=== PATIENT | male | born 1970 | race Caucasian/White ===

== ENCOUNTER 2016-05-31 07:42 | Day surgery (SDC) | payer BC ==
[2016-05-29 09:13] LABS: HEMATOCRIT 43.2 % (40.0-51.0); HEMOGLOBIN 15.4 g/dL (13.6-17.8)
[2016-05-29 09:21] LABS: PARTIAL THROMBO TIME 33.2 SEC (22.5-37.2)
[2016-05-29 09:25] LABS: BUN (BLOOD UREA NITROGEN) 15 MG/DL (6-23); CALCIUM, SERUM 9.2 MG/DL (8.5-10.4); CHLORIDE, SERUM 103 MMOL/L (96-112); CO2 (CARBON DIOXIDE) 30 MMOL/L (24-34); CREATININE 0.83 MG/DL (0.70-1.30); GFR AFRICAN AMERICAN 123 ML/MIN (>=60); GFR NON AFRICAN AMERICAN 106 ML/MIN (>=60); GLUCOSE, SERUM 86 MG/DL (60-99); POTASSIUM, SERUM 4.1 MMOL/L (3.5-5.3); SODIUM, SERUM 142 MMOL/L (135-148)
--- NOTE | ~2016-05-31 | OP ---
Record Of Operation [facility] [address] [place]. [address] NAME: HEAVEN DESAI MD : 70 STATUS : REG [facility]#: [id number] AGE: 45 ADM/REG DATE : 05/31/16 MR#: [id number] REPORT SERV DATE: 05/31/16 DICTATED BY: AROLDO ZAMAN DATE: 05/31/16 REPORT STATUS : Draft TRANSCRIBED BY: YOGI DATE: 05/31/16 DATE OF PROCEDURE: 05/31/2016 PREOPERATIVE DIAGNOSIS: Chronic rhinosinusitis. POSTOPERATIVE DIAGNOSIS: Chronic rhinosinusitis. PROCEDURE: Left maxillary antrostomy with tissue removal, left anterior ethmoidectomy, and frontal sinusotomy. ESTIMATED BLOOD LOSS: 15 mL. COMPLICATIONS: No complications. FINDINGS: Polypoid tissue in the left frontal recess, left maxillary os, and the anterior ethmoid versus mucoperiosteal thickening. Propel stent placed in the ethmoid cavity. Acclarent system for balloon used for frontal sinusotomy. INDICATIONS FOR PROCEDURE: This is a 45-year-old gentleman with chronic rhinosinusitis despite maximum medical therapy including a month of antibiotics with oral steroids. Followup CT shows continued opacification left frontal recess, left anterior ethmoids and maxillary sinuses. He continues to have pain and pressure on the left side of his face, particularly over his eye. He has indications of procedure described with risks, benefits, and procedure including blood loss, infection, risk of anesthesia, pain and bleeding postoperatively, and continued infection. He voiced understanding and signed the consent. The consent was placed on the chart at the time of operation. PROCEDURE IN DETAIL: The patient was wheeled to the OR suite and placed on the table in supine position. He was intubated and placed under general endotracheal anesthesia without difficulty. The table was turned to 90 degrees. His nasal cavity was sprayed with Afrin and 4% cocaine-soaked cottonoids were placed for 3 minutes to 5 minutes. I would scrub and gown. He would prep and drape in a standard fashion for endoscopic sinus surgery. Image would be in the computer at the time of the procedure. So, we started on the left hand side. I did take pictures of both sides of his nasal cavity. He did have a deviated septum, but he has no symptoms of obstruction and a good access to his middle meatus on the left, so we did not perform septoplasty. I would inject a milliliter of local which was 2% lidocaine with 1:100,000 epinephrine on his middle turbinate. Also, 0.5 mL at his uncinate and 0.5 mL at his posterior fontanelle and ethmoid area. I would medialize the middle turbinate. I elevated the uncinate using an elevator. I came to this using a backbiter and then microdebrider completing uncinectomy. Using a 30 degree scope, I identified the maxillary os at the inferior portion of the middle meatus, and this was widened using a straight Krishan-Cut and a backbiter and microdebrider. I irrigated out the maxillary sinus with his mucoperiosteal thickening within the sinus. I then injected another milliliter along the anterior ethmoid area. I would introduce the frontal introducer for the Acclarent balloon system, twisted the wire into this frontal sinus to check and see through his forehead and visualizing he had an extensive frontal sinus system image Record Of [place] [id number] [facility] [place]. [address] NAME: HEAVEN DESAI MD : 70 STATUS : REG [facility] [place] PAT#: [id number] AGE: 45 ADM/REG DATE : 05/31/16 MR#: [id number] REPORT SERV DATE: 05/31/16 DICTATED BY: AROLDO ZAMAN DATE: 05/31/16 REPORT STATUS : Draft TRANSCRIBED BY: YOGI DATE: 05/31/16 as well. So, I placed the wire into his left frontal sinus and his frontal recess, and placed the balloon over this. Inflated 3 times to 12 atmospheres in this area. . I irrigated this area, suctioned this thoroughly. I then came through the anterior ethmoid bulla inferiorly using a curette and completed my anterior ethmoidectomy using a combination of straight Krishan-Cut and microdebrider back to the level basal lamella. I removed any bony pieces, leaving a wide anterior ethmoid cavity. There was minimal bleeding during this portion of the procedure. So at this point, I suctioned all bleeding. I placed a large propel stent into the anterior ethmoid cavity. I achieved hemostasis in all areas. The procedure was complete. He was turned to the care of anesthesiologist. Subsequently, awoken, extubated, and stably transferred to recovery area. Photos were taken of these cavities. SHEILA/YOGI Aroldo Zaman M.D. / [id number] CC: Renetta Schrader Sheena
[~2016-05-31 07:42] MED LIST: VITAMIN D2000 UNIT PO
== END 2016-05-31 13:41 | disposition home or self-care (01) ==
LOC: SDC 07:42
PROVIDERS: Otolaryngology
PROC: 09B Ear, Nose, Sinus, Excision (ICD-10-PCS; 2016-05-31)
PROC: 099R0ZZ Drainage of Left Maxillary Sinus, Open Approach (ICD-10-PCS; principal; 2016-05-31 08:45)
PROC: 09BV0ZZ Excision of Left Ethmoid Sinus, Open Approach (ICD-10-PCS; 2016-05-31 08:45)
PROC: 09BT0ZZ Excision of Left Frontal Sinus, Open Approach (ICD-10-PCS; 2016-05-31 08:45)
DX: J32.9 Chronic sinusitis, unspecified (principal); J34.3 Hypertrophy of nasal turbinates; Z95.0 Presence of cardiac pacemaker; Z98.890 Other specified postprocedural states
CPT/HCPCS: 80048; 85014; 85018; 85730; 88305; 93005; A9270-GY; C1726; C2625; J0690; J1170; J2250; J2405; J2710; J3010